=== PATIENT | female | born 1970 | race Hispanic/Latino ===

== ENCOUNTER 2018-12-05 13:03 | Observation (INO) | payer SELFPAY ==
[~2018-12-05] VITALS: Ht 157.5 cm; Wt 82.6 kg
--- OUTSIDE RECORDS SUMMARY | 2018-12-05 13:06 | XMS REPORT | Summary of Care ---
Author Author [facility] Organization [facility] Address Unknown Phone Unavailable Encounter LUCIA Branch(TWAN) [phone] Date(s): 03/13/17 - 03/14/17 [facility] [id number] [place] [address]- Discharge Diagnosis: Cervical sprain Discharge Diagnosis: Abdominal pain due to injury Discharge Diagnosis: Acute head injury Discharge Diagnosis: Anterior chest wall pain Discharge Disposition: Home or Self Care Attending Physician: Eboni Aj DO Vital Signs 1 2 3 Most recent to oldest [Reference Range]: 157.48 cm (03/13/17 9:15 PM) Height 98.1 DegF (03/14/17 2:11 AM) 98.1 DegF (03/13/17 10:20 PM) 98.3 DegF (03/13/17 9:15 PM) Temperature Oral [96.4-99.1 DegF] 120/87 mmHg (03/14/17 2:11 AM) 146/90 mmHg *HI* (03/13/17 11:55 PM) 140/91 mmHg (03/13/17 10:20 PM) Blood Pressure [90-140/60-90 mmHg] 14 BRMIN (03/14/17 2:11 AM) 19 BRMIN (03/13/17 11:55 PM) 18 BRMIN (03/13/17 10:20 PM) Respiratory Rate [14-20 BRMIN] 52 bpm *LOW* (03/14/17 2:11 AM) 59 bpm *LOW* (03/13/17 11:55 PM) 60 bpm (03/13/17 10:20 PM) Peripheral Pulse Rate [60-100 bpm] 81.818 kg (03/13/17 9:15 PM) Weight 32.99 m2 (03/13/17 9:15 PM) Body Mass Index Problem List Condition Effective Dates Status Health Status Informant HTN Active (hypertension)(Confi rmed) Allergies, Adverse Reactions, Alerts Substance Reaction Severity Status NKDA Active Medications Flexeril 10 mg oral tablet 10 mg, PO, TID, PRN Muscle Spasm, X 10 day, # 20 tab, 0 Refill(s) Start Date: 03/14/17 Stop Date: 03/24/17 Status: Ordered morphine Sulfate 4 mg, 1 mL, Route: IVP, Drug form: SOLN, ONCE, Dosing Weight 81.818, kg, Priorit y: STAT, Start date: 03/13/17 21:42:00 CHICKEN STUFFER, Stop date: 03/13/17 21:42:00 CHICKEN STUFFER Notes: (Same as:MORPhine Sulfate) Start Date: 03/13/17 Stop Date: 03/13/17 Status: Completed Motrin 600 mg oral tablet 600 mg=1 tab, PO, Q6H, PRN Pain, take with food, # 20 tab, 0 Refill(s) Start Date: 03/14/17 Stop Date: 03/14/17 Status: Completed Zofran 4 mg, 2 mL, Route: IVP, Drug form: INJ, ONCE, Dosing Weight 81.818, kg, Priority : STAT, Start date: 03/13/17 21:42:00 CHICKEN STUFFER, Stop date: 03/13/17 21:42:00 CHICKEN STUFFER Notes: (Same as: Zofran) MEDICATION WASTE Product Size: 4 mgProduct Was timothy: ___ mg Start Date: 03/13/17 Stop Date: 03/13/17 Status: Completed Results ELECTROLYTES Most recent to 1 oldest [Reference Range]: Sodium Lvl [135-145 140 mEq/L mEq/L] (03/13/17 10:00 PM) Potassium Lvl 4.5 mEq/L [3.5-5.1 mEq/L] (03/13/17 10:00 PM) Chloride Lvl [95-109 107 mEq/L mEq/L] (03/13/17 10:00 PM) CO2 [24-32 mEq/L] 25 mEq/L (03/13/17 10:00 PM) AGAP [10.0-20.0 12.5 mEq/L mEq/L] (03/13/17 10:00 PM) CHEM PANEL Most recent to 1 oldest [Reference Range]: Creatinine Lvl 1.00 mg/dL [0.50-1.40 mg/dL] (03/13/17 10:00 PM) eGFR 66 mL/min/1.73m2 1 *NA* (03/13/17 10:00 PM) BUN [7-22 mg/dL] 20 mg/dL (03/13/17 10:00 PM) B/C Ratio [6-25] 20 (03/13/17 10:00 PM) Glucose Lvl [70-99 118 mg/dL mg/dL] *HI* (03/13/17 10:00 PM) Total Protein 8.0 g/dL [6.4-8.4 g/dL] (03/13/17 10:00 PM) Albumin Lvl [3.5-5.0 3.6 g/dL g/dL] (03/13/17 10:00 PM) Globulin [2.7-4.2 4.4 g/dL g/dL] *HI* (03/13/17 10:00 PM) A/G Ratio [0.7-1.6] 0.8 (03/13/17 10:00 PM) Calcium Lvl 8.7 mg/dL [8.5-10.5 mg/dL] (03/13/17 10:00 PM) ALT [0-65 unit/L] 29 unit/L (03/13/17 10:00 PM) AST [0-37 unit/L] 31 unit/L (03/13/17 10:00 PM) Alk Phos [39-136 128 unit/L unit/L] (03/13/17 10:00 PM) Bili Total [0.2-1.3 0.6 mg/dL mg/dL] (03/13/17 10:00 PM) 1Result Comment: The eGFR is calculated using the CKD-EPI formula. In most young, healthy individuals the eGFR will be >90 mL/min/1.73m2. The eGFR declines with age. An eGFR of 60-89 may be normal in some populations, particularly the elderly, for whom the CKD-EPI formula has not been extensively validated. Use of the eGFR is not recommended in the following populations: Individuals with unstable creatinine concentrations, including patients and those with serious co-morbid conditions. Patients with extremes in muscle mass or diet. The data above are obtained from the National Kidney Disease Education Program ( NKDEP) which additionally recommends that when the eGFR is used in patients with extremes of body mass index for purposes of drug dosing, the eGFR should be mul tiplied by the estimated BMI. ENDOCRINOLOGY Most recent to 1 oldest [Reference Range]: S Preg [Negative] Negative *NA* (03/13/17 10:00 PM) HEMATOLOGY Most recent to 1 oldest [Reference Range]: WBC [3.7-10.4 K/CMM] 8.3 K/CMM (03/13/17 10:00 PM) RBC [4.20-5.40 4.62 M/CMM M/CMM] (03/13/17 10:00 PM) Hgb [12.0-16.0 g/dL] 13.8 g/dL (03/13/17 10:00 PM) Hct [36.0-48.0 %] 40.8 % (03/13/17 10:00 PM) MCV [80.0-98.0 fL] 88.4 fL (03/13/17 10:00 PM) MCH [27.0-31.0 pg] 30.0 pg (03/13/17 10:00 PM) MCHC [32.0-36.0 33.9 g/dL g/dL] (03/13/17 10:00 PM) RDW [11.5-14.5 %] 13.8 % (03/13/17 10:00 PM) Platelet [133-450 184 K/CMM K/CMM] (03/13/17 10:00 PM) MPV [7.4-10.4 fL] 9.6 fL (03/13/17 10:00 PM) Segs [45.0-75.0 %] 50.4 % (03/13/17 10:00 PM) Lymphocytes 39.8 % [20.0-40.0 %] (03/13/17 10:00 PM) Monocytes [2.0-12.0 7.9 % %] (03/13/17 10:00 PM) Eosinophils [0.0-4.0 1.1 % %] (12/11/17 10:00 PM) Basophils [0.0-1.0 0.8 % %] (03/13/17 10:00 PM) Segs-Bands # 4.2 K/CMM [1.5-8.1 K/CMM] (03/13/17 10:00 PM) Lymphocytes # 3.3 K/CMM [1.0-5.5 K/CMM] (03/13/17 10:00 PM) Monocytes # [0.0-0.8 0.7 K/CMM K/CMM] (03/13/17 10:00 PM) Eosinophils # 0.1 K/CMM [0.0-0.5 K/CMM] (03/13/17 10:00 PM) Basophils # [0.0-0.2 0.1 K/CMM K/CMM] (03/13/17 10:00 PM) PT [12.0-14.7 13.7 seconds seconds] (03/13/17 10:00 PM) INR [0.85-1.17] 1.05 (03/13/17 10:00 PM) PTT [22.9-35.8 31.7 seconds seconds] (03/13/17 10:00 PM) Immunizations No data available for this section Procedures Procedure Date Related Diagnosis Body Site Appendectomy section Social History Social History Type Response Smoking Status Never smoker; Exposure to Tobacco Smoke None; Cigarette Smoking Last 365 Days No; Reg Smoking Cessation Counseling No Assessment and Plan No data available for this section
--- OUTSIDE RECORDS SUMMARY | 2018-12-05 13:06 | XMS REPORT | CCD ---
Author Author Auto Generated Organization [facility] Address Unknown Phone Unavailable Care Team Providers Care Licensed Prosthetist/Orthotist Name Role Phone Jose Massey CP Allergies, Adverse Reactions, Alerts Substance Reaction Status NKDA Active Medications Medication Instructions Start Date End Date Status Fioricet oral tablet 1 tab, PO, Q4H, PRN, 20 tab, 06/13/2011 Ordered Headache, Substitution Allowed, Maintenance Sodium Chloride 0.9% 1,000 mL, Rate: 1,000 ml/hr, Infuse 06/13/2011 06/13/2011 Completed (Bolus) IV 1,000 mL over: 1 hr, Route: IV, Dosing Weight 76.051 kg, Total Volume: 1,000, Bolus Dose, Priority: STAT, Start date: 06/13/11 12:44:00, Duration: 1 doses or times, Stop date: 06/13/11 13:43:00 promethazine 12.5 mg, 50 mL, Route: IVPB, Drug 06/13/2011 06/13/2011 Completed form: SOLN, ONCE, Priority: STAT, Start date: 06/13/11 12:44:00, Stop date: 06/13/11 12:44:00 aspirin 81 mg 324 mg, 4 tab, Route: PO, Drug 06/13/2011 06/13/2011 Completed tablet, chewable form: CHEWTAB, ONCE, Priority: STAT, Start date: 06/13/11 12:45:00, Stop date: 06/13/11 12:45:00 Saline Flush 0.9% 5 ml, Route: IVP, Drug Form: INJ, 06/13/2011 06/13/2011 Discontinued PRN, PRN Line Flush, Start date: 06/13/11 12:45:00, Duration: 1 doses or times, Stop date: Limited # of times Toradol 30 mg/mL 30 mg, 1 mL, Route: IV, Drug form: 06/13/2011 06/13/2011 Completed injectable solution INJ, ONCE, Start date: 06/13/11 15:58:00, Stop date: 06/13/11 15:58:00 Tylenol 650 mg, Route: PO, ONCE, Priority: 06/13/2011 06/13/2011 Completed STAT, Start date: 06/13/11 13:56:00, Stop date: 06/13/11 13:56:00 Tylenol 650 mg, 20.3 mL, Route: PO, Drug 06/13/2011 06/13/2011 Completed form: LIQ, ONCE, Priority: STAT, Start date: 06/13/11 12:45:00, Stop date: 06/13/11 12:45:00 Vital Signs Most recent to oldest [Reference Range]: 1 Height 157.48 cm (06/13/2011 11:55:00) Weight 76.051 kg (06/13/2011 11:55:00) Results CHEMISTRY Most recent to oldest [Reference Range]: 1 2 Sodium Lvl [135-145 mEq/L] 140 mEq/L (06/13/2011 13:00:00) Potassium Lvl [3.5-5.1 mEq/L] 4.4 mEq/L (06/13/2011 13:00:00) Chloride Lvl [95-109 mEq/L] 108 mEq/L (06/13/2011 13:00:00) CO2 [24-32 mEq/L] 25 mEq/L (06/13/2011 13:00:00) AGAP [10.0-20.0 mEq/L] 11.4 mEq/L (06/13/2011 13:00:00) Creatinine Lvl [0.5-1.4 mg/dL] 0.6 mg/dL (06/13/2011 13:00:00) BUN [7-22 mg/dL] 15 mg/dL (06/13/2011 13:00:00) B/C Ratio [6-25] 25 (06/13/2011 13:00:00) Glucose Lvl 93 mg/dL 1 *NA* (06/13/2011 13:00:00) Total Protein [6.4-8.4 g/dL] 7.8 g/dL (06/13/2011:00:00) Albumin Lvl [3.5-5.0 g/dL] 4.0 g/dL (06/13/2011:00:00) Globulin [2.0-4.0 g/dL] 3.8 g/dL (06/13/2011:00:00) A/G Ratio [0.7-1.6] 1.1 (06/13/2011:00:00) Calcium Lvl [8.5-10.5 mg/dL] 8.5 mg/dL (06/13/2011:00:00) ALT [0-65 U/L] 19 U/L (06/13/2011:00:00) AST [0-37 U/L] 18 U/L (06/13/2011:00:00) Alk Phos [39-136 U/L] 108 U/L (06/13/2011:00:00) Bili Total [0.2-1.3 mg/dL] 0.3 mg/dL (06/13/2011:00:00) Total CK [12-191 U/L] 43 U/L (06/13/2011:30:00) 59 U/L (06/13/2011:00:00) CK MB [0.5-3.6 ng/mL] <0.5 ng/mL (06/13/2011:30:00) <0.5 ng/mL (06/13/2011:00:00) CK MB Index [0.0-2.5] <1.2 (06/13/2011:30:00) <0.8 (06/13/2011:00:00) Troponin-I [0.00-0.40 ng/mL] <0.02 ng/mL (06/13/2011:30:00) <0.02 ng/mL (06/13/2011:00:00) 1Interpretive Data: Reference Ranges : 0 - 7 days : 41 - 90 mg/dL7 days - 150 yrs : 70 - 99 mg/dL (fasting), based on the clinical recommendations of the [place] [employer]. HEMATOLOGY Most recent to oldest [Reference Range]: 1 2 WBC [3.7-10.4 K/CMM] 8.0 K/CMM (06/13/2011:00:00) RBC [4.20-5.40 M/CMM] 4.42 M/CMM (06/13/2011:00:00) Hgb [12.0-16.0 g/dL] 9.9 g/dL *LOW* (06/13/2011:00:00) Hct [36.0-48.0 %] 31.7 % *LOW* (06/13/2011:00:00) MCV [81.0-99.0 fL] 71.8 fL *LOW* (06/13/2011:00:00) MCH [27.0-31.0 pg] 22.4 pg *LOW* (06/13/2011:00:00) MCHC [32.0-36.0 g/dL] 31.2 g/dL *LOW* (06/13/2011:00:00) RDW [11.5-14.5 %] 17.6 % *HI* (06/13/2011:00:00) Platelet [133-450 K/CMM] 310 K/CMM (06/13/2011:00:00) MPV [7.4-10.4 fL] 9.1 fL (06/13/2011:00:00) Segs [45.0-75.0 %] 62.1 % (06/13/2011:00:00) Lymphocytes [20.0-40.0 %] 30.4 % (06/13/2011:00:00) Monocytes [2.0-12.0 %] 6.2 % (06/13/2011:00:00) Eosinophils [0.0-4.0 %] 0.8 % (06/13/2011:00:00) Basophils [0.0-1.0 %] 0.5 % (06/13/2011:00:00) Segs-Bands # [1.5-8.1 K/CMM] 5.0 K/CMM (06/13/2011:00:00) Lymphocytes # [1.0-5.5 K/CMM] 2.4 K/CMM (06/13/2011 13:00:00) Monocytes # [0.0-0.8 K/CMM] 0.5 K/CMM (06/13/2011 13:00:00) Eosinophils # [0.0-0.5 K/CMM] 0.1 K/CMM (06/13/2011 13:00:00) Basophils # [0.0-0.2 K/CMM] 0.0 K/CMM (06/13/2011 13:00:00) Microcyte [None Seen] 1+ *ABN* (06/13/2011 13:00:00) PT [12.0-14.7 seconds] 13.4 seconds (06/13/2011 13:00:00) INR [0.85-1.17] 1.02 2 (06/13/2011 13:00:00) PTT [22.9-35.8 seconds] 32.4 seconds 3 (06/13/2011 13:00:00) 2Interpretive Data: RECOMMENDED RANGES FOR PROTIME INR: 2.0-3.0 for most medical and surgical thromboembolic states. 2.5-3.5 for artificial heart valves and recurrent embolism.INR SHOULD BE USED ONLY FOR PATIENTS ON STABLE ANTICOAGULANT THERAPY. 3Interpretive Data: Heparin Therapeutic Range: 57 - 92 Seconds
--- OUTSIDE RECORDS SUMMARY | 2018-12-05 13:06 | XMS REPORT | CCD ---
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 Name Role Phone Jose Massey CP Allergies, Adverse Reactions, Alerts Substance Reaction Status NKDA Active Medications Medication Instructions Start Date End Date Status morphine Sulfate 4 mg, 1 mL, Route: IVP, Drug form: 07/16/2011 07/16/2011 Completed INJ, ONCE, Priority: STAT, Start date: 07/16/11 1:09:00, Stop date: 07/16/11 1:09:00 Omnipaque 240 50 mL, Route: PO, Drug Form: SOLN, 07/16/2011 07/16/2011 Completed ONCE, STAT, Start date: 07/16/11 1:09:00, Stop date: 07/16/11 1:09:00 ondansetron 4 mg, 2 mL, Route: IVP, Drug form: 07/16/2011 07/16/2011 Completed INJ, ONCE, Priority: STAT, Start date: 07/16/11 1:09:00, Stop date: 07/16/11 1:09:00 Sodium Chloride 0.9% 1,000 mL, Rate: 1,000 ml/hr, Infuse 07/16/2011 07/16/2011 Completed (Bolus) IV 1,000 mL over: 1 hr, Route: IV, Dosing Weight 2.358 kg, Total Volume: 1,000, Bolus Dose, Priority: STAT, Start date: 07/16/11 1:08:00, Duration: 1 doses or times, Stop date: 07/16/11 2:07:00 enalapril Substitution Allowed 07/15/2011 Ordered hydromorphone 1 mg, 1 mL, Route: IVP, Drug form: 07/16/2011 07/16/2011 Completed INJ, ONCE, Priority: STAT, Start date: 07/16/11 3:44:00, Stop date: 07/16/11 3:44:00 Edwards 5/325 oral 1 tab, PO, Q4-6H, PRN, 20 tab, as 07/16/2011 Ordered tablet needed for pain, Substitution Allowed, Maintenance Vital Signs Most recent to oldest [Reference Range]: 1 Height 165.10 cm (07/15/2011 23:33:00) Weight 2.358 kg (07/15/2011 23:33:00) Results URINALYSIS Most recent to oldest [Reference Range]: 1 UA Turbidity [Clear] Clear (07/16/2011 01:30:00) UA Color STRAW *NA* (07/16/2011 01:30:00) UA pH [5.0-8.0] 5.5 (07/16/2011 01:30:00) UA Spec Grav [<=1.030] 1.005 (07/16/2011 01:30:00) UA Glucose [Negative] Negative (07/16/2011 01:30:00) UA Blood [Negative] Negative (07/16/2011 01:30:00) UA Ketones [Negative] Negative *NA* (07/16/2011 01:30:00) UA Protein [Negative] Negative (07/16/2011 01:30:00) UA Urobilinogen [0.1-1.0 EU/dL] 0.2 EU/dL (07/16/2011 01:30:00) UA Bili [Negative] Negative *NA* (07/16/2011 01:30:00) UA Leuk Est [Negative] Negative (07/16/2011 01:30:00) UA Nitrite [Negative] Negative (07/16/2011 01:30:00) UA WBC [None Seen /HPF] 0-2 /HPF (07/16/2011 01:30:00) UA RBC [0-2] None Seen (07/16/2011 01:30:00) UA Bacteria [None Seen /HPF] Occasional /HPF (07/16/2011 01:30:00) UA Sq Epi [Few /LPF] Few /LPF (07/16/2011 01:30:00) Micro? Performed (07/16/2011 01:30:00) CHEMISTRY Most recent to oldest [Reference Range]: 1 Sodium Lvl [135-145 mEq/L] 138 mEq/L (07/16/2011:30:00) Potassium Lvl [3.5-5.1 mEq/L] 3.9 mEq/L (07/16/2011:30:00) Chloride Lvl [95-109 mEq/L] 106 mEq/L (07/16/2011:30:00) CO2 [24-32 mEq/L] 23 mEq/L *LOW* (07/16/2011:30:00) AGAP [10.0-20.0 mEq/L] 12.9 mEq/L (07/16/2011:30:00) Creatinine Lvl [0.5-1.4 mg/dL] 0.7 mg/dL (07/16/2011:30:00) BUN [7-22 mg/dL] 13 mg/dL (07/16/2011:30:00) B/C Ratio [6-25] 19 (07/16/2011:30:00) Glucose Lvl [70-99 mg/dL] 101 mg/dL 1 *HI* (07/16/2011:30:00) Total Protein [6.4-8.4 g/dL] 8.6 g/dL *HI* (07/16/2011:30:00) Albumin Lvl [3.5-5.0 g/dL] 3.9 g/dL (07/16/2011:30:00) Globulin [2.0-4.0 g/dL] 4.7 g/dL *HI* (07/16/2011:30:00) A/G Ratio [0.7-1.6] 0.8 (07/16/2011:30:00) Calcium Lvl [8.5-10.5 mg/dL] 8.6 mg/dL (07/16/2011:30:00) ALT [0-65 U/L] 22 U/L (07/16/2011:30:00) AST [0-37 U/L] 17 U/L (07/16/2011:30:00) Alk Phos [39-136 U/L] 123 U/L (07/16/2011:30:00) Bili Total [0.2-1.3 mg/dL] 0.3 mg/dL (07/16/2011 01:30:00) Lipase Lvl [73-393 U/L] 119 U/L (07/16/2011:30:00) S Preg [Negative] Negative *NA* (07/16/2011:30:00) 1Interpretive Data: Adult reference range values reflect the clinical guidelinesof the [place] [employer]. HEMATOLOGY Most recent to oldest [Reference Range]: 1 WBC [3.7-10.4 K/CMM] 10.2 K/CMM (07/16/2011 01:30:00) RBC [4.20-5.40 M/CMM] 4.39 M/CMM (07/16/2011 01:30:00) Hgb [12.0-16.0 g/dL] 9.6 g/dL *LOW* (07/16/2011 01:30:00) Hct [36.0-48.0 %] 31.1 % *LOW* (07/16/2011:30:00) MCV [81.0-99.0 fL] 70.8 fL *LOW* (07/16/2011 01:30:00) MCH [27.0-31.0 pg] 21.9 pg *LOW* (07/16/2011:30:00) MCHC [32.0-36.0 g/dL] 30.9 g/dL *LOW* (07/16/2011 01:30:00) RDW [11.5-14.5 %] 17.8 % *HI* (07/16/2011:30:00) Platelet [133-450 K/CMM] 271 K/CMM (07/16/2011 01:30:00) MPV [7.4-10.4 fL] 9.0 fL (07/16/2011 01:30:00) Segs [45.0-75.0 %] 60.7 % (07/16/2011 01:30:00) Lymphocytes [20.0-40.0 %] 31.4 % (07/16/2011 01:30:00) Monocytes [2.0-12.0 %] 7.1 % (07/16/2011 01:30:00) Eosinophils [0.0-4.0 %] 0.4 % (07/16/2011 01:30:00) Basophils [0.0-1.0 %] 0.4 % (07/16/2011 01:30:00) Segs-Bands # [1.5-8.1 K/CMM] 6.2 K/CMM (07/16/2011 01:30:00) Lymphocytes # [1.0-5.5 K/CMM] 3.2 K/CMM (07/16/2011 01:30:00) Monocytes # [0.0-0.8 K/CMM] 0.7 K/CMM (07/16/2011 01:30:00) Eosinophils # [0.0-0.5 K/CMM] 0.0 K/CMM (07/16/2011 01:30:00) Basophils # [0.0-0.2 K/CMM] 0.0 K/CMM (07/16/2011 01:30:00) Microcyte [None Seen] 1+ *ABN* (07/16/2011 01:30:00)
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
--- OUTSIDE RECORDS SUMMARY | 2018-12-05 13:07 | XMS REPORT ---
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 or Problems Problem Name Problem Code Onset Date Status Entry Date Provider Comment Standard Description Annotate Alkaline phosphatase, elevated 790.5 Active Franco Morrell MD Other nonspecific abnormal serum enzyme levels Blurred vision 368.8 Active Franco Morrell MD Other specified visual disturbances Financial problems V60.2 Active Franco Morrell MD Inadequate material resources Foot pain 729.5 Active Franco Morrell MD Pain in limb Screening for breast cancer V76.10 Active Franco Morrell MD Breast screening, unspecified Well woman exam V72.3 Active Franco Morrell MD Special investigations and examinations - Gynecological examination Hearing deficit 389.9 Active Franco Morrell MD Unspecified hearing loss Obesity Active Diandra Laird MD Obesity, unspecified Vitamin D deficiency 268.9 Active Diandra Laird MD Unspecified vitamin D deficiency Headache, tension 307.81 Active Diandra Laird MD Tension headache Hyperlipidemia 272.4 Active Diandra Laird MD Other and unspecified hyperlipidemia Prediabetes 790.29 Active Diandra Laird MD Other abnormal glucose Anxiety, situational 308.3 Active Diandra Laird MD Other acute reactions to stress BMI 32-32.9 adult V85.32 Active Franco Morrell MD Body Mass Index 32.0-32.9, adult Hypertension benign essential 401.1 Active Diandra Laird MD Benign essential hypertension Viral URI 465.9 Active Franco Morrell MD Acute upper respiratory infections of unspecified site Screening for anemia V78.1 Inactive Franco Morrell MD Screening for other and unspecified deficiency anemia Screening for anemia ICD-V78.1 Inactive Franco Morrell MD Screening for metabolic disease V77.99 Inactive Franco Morrell MD Screening for other and unspecified endocrine, nutritional, metabolic, and immunity disorders Screening for metabolic disease ICD-V77.99 Inactive Franco Morrell MD Screening for std V74.5 Inactive Franco Morrell MD Screening examination for venereal disease Screening for std ICD-V74.5 Inactive Franco Morrell MD Screening for thyroid disorder V77.0 Inactive Franco Morrell MD Screening for thyroid disorders Screening for thyroid disorder ICD-V77.0 Inactive Franco Morrell MD Dysuria ICD-788.1 Inactive Franco Morrell MD Lower back pain ICD-724.2 Inactive Franco Morrell MD Pyelonephritis ICD-590.80 Inactive Franco Morrell MD Chest tightness ICD-786.59 Inactive Franco Morrell MD Colon cancer screening V76.51 Inactive Franco Morrell MD Screening for malignant neoplasms of colon Colon cancer screening ICD-V76.51 Inactive Franco Morrell MD Bone pain ICD-733.90 Inactive Franco Morrell MD Annual gynecological examination V72.3 Inactive Franco Morrell MD Special investigations and examinations - Gynecological examination Annual gynecological examination ICD-V72.3 Inactive Franco Morrell MD IUD check ICD-V25.42 Inactive Franco Morrell MD Mammogram, Screening V76.12 Inactive Diandra Laird MD Other screening mammogram Mammogram, Screening ICD-V76.12 Inactive Diandra Laird MD Nasal Congestion 478.19 Inactive rFanco Morrell MD Other disease of nasal cavity and sinuses Nasal Congestion ICD-478.19 Inactive Franco Morrell MD Screening, diabetes mellitus V77.1 Inactive Diandra Laird MD Screening for diabetes mellitus Screening, diabetes mellitus ICD-V77.1 Inactive Diandra Laird MD BMI 33.0-33.9 Inactive Diandra Laird MD Body Mass Index 33.0-33.9, adult Dysuria 788.1 Resolved Franco Morrell MD Dysuria Lower back pain 724.2 Resolved Franco Morrell MD Lumbago Pyelonephritis 590.80 Resolved Franco Morrell MD Pyelonephritis, unspecified Chest tightness 786.59 Resolved Franco Morrell MD Other chest pain Bone pain 733.90 Resolved Franco Morrell MD Disorder of bone and cartilage, unspecified IUD check V25.42 Resolved Franco Morrell MD Encounter for surveillance of intrauterine contraceptive device Viral URI 465.9 Resolved Franco Morrell MD Acute upper respiratory infections of unspecified site Medication List Medication Instructions Start Date Stop Date Generic Name NDC Status Provider Patient Instruction ARTIFICIAL TEARS 0.2-0.2-1 % OPHTHALMIC SOLUTION 1 to 2 drops as needed [id number] 400 [id number] Active Franco Morrell MD Active TYLENOL EXTRA STRENGTH 500 MG ORAL TABLET 2 by mouth every 8 hours as needed ACETAMINOPHEN 93893438471 Active Franco Morrell MD Active ERGOCALCIFEROL 74733 UNIT ORAL CAPSULE Take 1 capsule weekly ERGOCALCIFEROL 39567589149 Active Franco Morrell MD Active ENALAPRIL MALEATE 20 MG ORAL TABLET 1 by mouth twice a day. ENALAPRIL MALEATE [id number] Active Franco Morrell MD Active CIPRO 500 MG ORAL TABLET 1 by mouth twice a day CIPRO 500 MG ORAL TABLET 091402 CIPROFLOXACIN HCL Inactive ERGOCALCIFEROL 69263 UNIT ORAL CAPSULE Take 1 capsule weekly ERGOCALCIFEROL 45194 UNIT ORAL CAPSULE 4823869 ERGOCALCIFEROL Inactive ERGOCALCIFEROL 20111 UNIT ORAL CAPSULE TAKE 1 CAPSULE WEEKLY ERGOCALCIFEROL 66895 UNIT ORAL CAPSULE 6044545 ERGOCALCIFEROL Inactive CYCLOBENZAPRINE HCL 10 MG ORAL TABLET 1 By Mouth three times a day as needed for pain CYCLOBENZAPRINE HCL 10 MG ORAL TABLET 623093 CYCLOBENZAPRINE HCL Inactive IBUPROFEN 600 MG ORAL TABLET 1 By Mouth Every 8 hours As Needed pain IBUPROFEN 600 MG ORAL TABLET 873514 IBUPROFEN Inactive CHERATUSSIN AC 100-10 MG/5ML ORAL SYRUP 2 teaspoons (10mL) by mouth every 4 hours as needed for cough CHERATUSSIN AC 100-10 MG/5ML ORAL SYRUP 813677 GUAIFENESIN-CODEINE Inactive FLONASE ALLERGY RELIEF 50 MCG/ACT NASAL SUSPENSION 2 sprays each nostril every day FLONASE ALLERGY RELIEF 50 MCG/ACT NASAL SUSPENSION 5898565 FLUTICASONE PROPIONATE Inactive BENICAR HCT 20-12.5 MG ORAL TABLET Take 1 tablet daily BENICAR HCT 20-12.5 MG ORAL TABLET 720571 OLMESARTAN MEDOXOMIL-HCTZ Inactive CLONAZEPAM 0.5 MG ORAL TABLET 1 By Mouth Twice a Day CLONAZEPAM 0.5 MG ORAL TABLET 447163 CLONAZEPAM Inactive IBUPROFEN 600 MG ORAL TABLET 1 By Mouth Every 8 hours As Needed pain IBUPROFEN 600 MG ORAL TABLET 702539 IBUPROFEN Inactive MEDROL 4 MG ORAL TABLET THERAPY PACK use as directed MEDROL 4 MG ORAL TABLET THERAPY PACK 893594 METHYLPREDNISOLONE Inactive CIPRO 500 MG ORAL TABLET 1 by mouth twice a day CIPROFLOXACIN HCL 65371765528 No Longer Active Franco Morrell MD Active ERGOCALCIFEROL 57918 UNIT ORAL CAPSULE Take 1 capsule weekly ERGOCALCIFEROL 38096257304 No Longer Active Diandra Laird MD Active ERGOCALCIFEROL 54851 UNIT ORAL CAPSULE TAKE 1 CAPSULE WEEKLY ERGOCALCIFEROL 60680305867 No Longer Active Diandra Laird MD Active CYCLOBENZAPRINE HCL 10 MG ORAL TABLET 1 By Mouth three times a day as needed for pain CYCLOBENZAPRINE HCL 11172981950 No Longer Active Diandra Laird MD Active IBUPROFEN 600 MG ORAL TABLET 1 By Mouth Every 8 hours As Needed pain IBUPROFEN 43548743765 No Longer Active Diandra Laird MD Active CHERATUSSIN AC 100-10 MG/5ML ORAL SYRUP 2 teaspoons (10mL) by mouth every 4 hours as needed for cough GUAIFENESIN-CODEINE 25175436071 No Longer Active Diandra Laird MD Active FLONASE ALLERGY RELIEF 50 MCG/ACT NASAL SUSPENSION 2 sprays each nostril every day FLUTICASONE PROPIONATE 58805164754 No Longer Active Diandra Laird MD Active BENICAR HCT 20-12.5 MG ORAL TABLET Take 1 tablet daily OLMESARTAN MEDOXOMIL-HCTZ 61502805305 No Longer Active Diandra Laird MD Active CLONAZEPAM 0.5 MG ORAL TABLET 1 By Mouth Twice a Day CLONAZEPAM 11361482680 No Longer Active Diandra Laird MD Active IBUPROFEN 600 MG ORAL TABLET 1 By Mouth Every 8 hours As Needed pain IBUPROFEN 09863808711 No Longer Active Diandra Laird MD Active MEDROL 4 MG ORAL TABLET THERAPY PACK use as directed METHYLPREDNISOLONE 86500485646 No Longer Active Diandra Laird MD Active Vital Signs Date Name Value Unit Range Description blood pressure, diastolic, second observation 88 mm[Hg] BP bourne blood pressure, diastolic 88 mm[Hg] BP bourne blood pressure, systolic, second observation 136 mm[Hg] BP sys blood pressure, systolic 136 mm[Hg] BP sys height E&M 62 [in_us] Bdy height pulse rate E&M 63 /min Heart rate respiratory rate #2 73 Resp rate temperature E&M 97.4 [degF] Body temperature weight E&M 178.50 [lb_av] Weight Measured blood pressure, diastolic, second observation 88 mm[Hg] BP bourne blood pressure, diastolic 95 mm[Hg] BP bourne blood pressure, systolic, second observation 154 mm[Hg] BP sys blood pressure, systolic 143 mm[Hg] BP sys height E&M 62 [in_us] Bdy height pulse rate E&M 60 /min Heart rate pulse rate #2 54 Heart rate respiratory rate E&M 17 /min Resp rate temperature E&M 98.4 [degF] Body temperature weight E&M 179.25 [lb_av] Weight Measured blood pressure, diastolic 73 mm[Hg] BP bourne blood pressure, systolic 129 mm[Hg] BP sys height E&M 62 [in_us] Bdy height pulse rate E&M 60 /min Heart rate temperature E&M 98.1 [degF] Body temperature weight E&M 178.80 [lb_av] Weight Measured blood pressure, diastolic 82 mm[Hg] BP bourne blood pressure, systolic 141 mm[Hg] BP sys height E&M 62 [in_us] Bdy height pulse rate E&M 61 /min Heart rate temperature E&M 98.4 [degF] Body temperature weight E&M 182.38 [lb_av] Weight Measured blood pressure, diastolic, second observation 93 mm[Hg] BP bourne blood pressure, diastolic 92 mm[Hg] BP bourne blood pressure, systolic, second observation 144 mm[Hg] BP sys blood pressure, systolic 152 mm[Hg] BP sys height E&M 62 [in_us] Bdy height pulse rate E&M 59 /min Heart rate pulse rate #2 51 Heart rate temperature E&M 97.9 [degF] Body temperature weight E&M 183 [lb_av] Weight Measured Diagnostic Results Date Name Value Unit Range Description Lab Report: CBC With Differential/Platelet, Comp. Metabolic Panel (14), ... - Urinalysis mucus on urinalysis Present Not Estab. Lab Report: CBC With Differential/Platelet, Comp. Metabolic Panel (14), ... - Chemistry thyroid stimulating hormone, serum 2.970 u[iU]/mL 0.450-4.500 Lab Report: CBC With Differential/Platelet, Comp. Metabolic Panel (14), ... - Urinalysis WBC urine on microscopy 6-10 /hpf {Cells}/[HPF] 0 - 5 Office Visit: URI, anxiety, HTN - Chemistry beta HCG, urine, semiquantitative negative Lab Report: CBC With Differential/Platelet, Comp. Metabolic Panel (14), ... - Chemistry very low density lipoproteins 16 mg/dL 5-40 hepatitis B surface antigen Negative Negative Lab Report: CBC With Differential/Platelet, Comp. Metabolic Panel (14), ... - Urinalysis epithelial cells, urine >10 /[LPF] 0 - 10 Lab Report: CBC With Differential/Platelet, Comp. Metabolic Panel (14), ... - Chemistry chloride, serum 105 mmol/L 96-106 urea nitrogen, blood 19 mg/dL 6-24 Lab Report: CBC With Differential/Platelet, Comp. Metabolic Panel (14), ... - Urinalysis leukocyte esterase, urine, by dipstick 2+ Negative Lab Report: CBC With Differential/Platelet, Comp. Metabolic Panel (14), ... - Hematology mean corpuscular hemoglobin concentration, RBC 32.9 G/DL % 31.5-35.7 erythrocyte (RBC) count 4.84 X10E6/UL 10*6/mm3 3.77-5.28 Office Visit: Acute Visit 48y F pyelo, HTN - Urinalysis nitrite, urine, semiquantitative negative Lab Report: CBC With Differential/Platelet, Comp. Metabolic Panel (14), ... - Serology hepatitis C antibody, serum 0.1 0.0-0.9 Lab Report: CBC With Differential/Platelet, Comp. Metabolic Panel (14), ... - Urinalysis urine color Yellow Yellow Lab Report: CBC With Differential/Platelet, Comp. Metabolic Panel (14), ... - Chemistry Absolute Neutrophils 2.8 X10E3/UL 10*3/uL 1.4-7.0 Lab Report: CBC With Differential/Platelet, Comp. Metabolic Panel (14), ... - Urinalysis bilirubin, urine Negative Negative Lab Report: CBC With Differential/Platelet, Comp. Metabolic Panel (14), ... - Chemistry LDL cholesterol, serum 143 mg/dL 0-99 urea nitrogen/creatinine ratio, serum 25 9-23 Lab Report: CBC With Differential/Platelet, Comp. Metabolic Panel (14), ... - Hematology mean corpuscular volume, RBC 88 fL 79-97 Lab Report: CBC With Differential/Platelet, Comp. Metabolic Panel (14), ... - Chemistry HDL cholesterol, serum 62 mg/dL >39 Lab Report: CBC With Differential/Platelet, Comp. Metabolic Panel (14), ... - Hematology monocytes as percent of blood leukocytes 4 % Not Estab. Lab Report: CBC With Differential/Platelet, Comp. Metabolic Panel (14), ... - Chemistry albumin/globulin ratio, serum 1.5 1.2-2.2 creatinine, serum 0.76 mg/dL 0.57-1.00 cholesterol, serum 221 mg/dL 110-047 9292/05/28 bilirubin, serum, total 0.4 mg/dL 0.0-1.2 Lab Report: CBC With Differential/Platelet, Comp. Metabolic Panel (14), ... - Hematology Eosinophil Absolute Count 0.0 X10E3/UL 10*3/uL 0.0-0.4 Lab Report: CBC With Differential/Platelet, Comp. Metabolic Panel (14), ... - Lab chlamydia DNA probe Negative Negative Lab Report: CBC With Differential/Platelet, Comp. Metabolic Panel (14), ... - Urinalysis appearance, urine Cloudy Clear Office Visit: Acute Visit 48y F pyelo, HTN - Urinalysis blood in urine (hemoglobin) by dipstick negative Lab Report: CBC With Differential/Platelet, Comp. Metabolic Panel (14), ... - Chemistry aspartate aminotransferase (SGOT), serum 23 U/L 0-40 Lab Report: CBC With Differential/Platelet, Comp. Metabolic Panel (14), ... - Hematology red blood cell distribution width 14.1 % 12.3-15.4 Lab Report: CBC With Differential/Platelet, Comp. Metabolic Panel (14), ... - Urinalysis urinalysis, microscopic examination See below: Lab Report: CBC With Differential/Platelet, Comp. Metabolic Panel (14), ... - Hematology leukocyte count, blood 5.5 X10E3/UL 10*3/mm3 3.4-10.8 Lab Report: CBC With Differential/Platelet, Comp. Metabolic Panel (14), ... - Urinalysis pH, urine, semiquantitative 6.0 5.0-7.5 Lab Report: CBC With Differential/Platelet, Comp. Metabolic Panel (14), ... - Chemistry potassium, serum 4.6 mmol/L 3.5-5.2 albumin, serum 4.4 g/dL 3.5-5.5 immature granulocytes, percentage of total cells, blood 0 % Not Estab. Lab Report: CBC With Differential/Platelet, Comp. Metabolic Panel (14), ... - Hematology lymphocyte count, blood, automated 2.4 X10E3/UL 10*3/mm3 0.7-3.1 hematocrit, blood 42.8 % 34.0-46.6 Lab Report: CBC With Differential/Platelet, Comp. Metabolic Panel (14), ... - Microbiology Neisseria gonorrhoeae DNA probe Negative Negative Lab Report: CBC With Differential/Platelet, Comp. Metabolic Panel (14), ... - Chemistry sodium, serum 140 mmol/L 134-144 Lab Report: CBC With Differential/Platelet, Comp. Metabolic Panel (14), ... - Hematology neutrophils as percent of blood leukocytes 51 % Not Estab. basophils as percent of blood leukocytes 0 % Not Estab. Lab Report: CBC With Differential/Platelet, Comp. Metabolic Panel (14), ... - Chemistry specific gravity, body fluid 1.019 1.005-1.030 Office Visit: Acute Visit 48y F HTN, preDM, HLD, vURI - Serology influenza virus A antigen negative Lab Report: CBC With Differential/Platelet, Comp. Metabolic Panel (14), ... - Chemistry RBC, Urine 3-10 /hpf /[HPF] 0 - 2 Lab Report: CBC With Differential/Platelet, Comp. Metabolic Panel (14), ... - Urinalysis protein, urine, semiquantitative (dipstick) Negative Negative/Trace Lab Report: CBC With Differential/Platelet, Comp. Metabolic Panel (14), ... - Serology rapid plasma reagin antibody, serum Non Reactive Non Reactive Lab Report: UA/M w/rflx Culture, Routine, Microscopic Examination, UA/M ... - Microbiology microscopic exam See below: Lab Report: CBC With Differential/Platelet, Comp. Metabolic Panel (14), ... - Chemistry carbon dioxide, venous blood 21 mmol/L 20-29 nitrate, urine Negative Negative triglyceride, serum, fasting 82 mg/dL 0-149 calcium, serum 9.1 mg/dL 8.7-10.2 alanine aminotransferase (SGPT), serum 19 U/L 0-32 Lab Report: CBC With Differential/Platelet, Comp. Metabolic Panel (14), ... - Hematology mean corpuscular hemoglobin, RBC 29.1 pg 26.6-33.0 Lab Report: CBC With Differential/Platelet, Comp. Metabolic Panel (14), ... - Urinalysis bacteria, urine microscopy Few None seen/Few Office Visit: Acute Visit 48y F pyelo, HTN - Urinalysis specific gravity, urine 1.025 Lab Report: CBC With Differential/Platelet, Comp. Metabolic Panel (14), ... - Chemistry protein, total, serum 7.4 g/dL 6.0-8.5 alkaline phosphatase, serum 122 U/L 39-117 Office Visit: Acute Visit 48y F HTN, preDM, HLD, vURI - Lab Microbial identification kit, rapid strep method negative Lab Report: CBC With Differential/Platelet, Comp. Metabolic Panel (14), ... - Hematology hemoglobin, blood 14.1 g/dL 11.1-15.9 lymphocytes as percent of blood leukocytes 44 % Not Estab. Lab Report: CBC With Differential/Platelet, Comp. Metabolic Panel (14), ... - Chemistry hemoglobin A1C, blood, as % of total hemoglobin 5.9 % 4.8-5.6 Lab Report: CBC With Differential/Platelet, Comp. Metabolic Panel (14), ... - Urinalysis glucose, urine, semiquantitative Negative Negative Lab Report: CBC With Differential/Platelet, Comp. Metabolic Panel (14), ... - Genetics/fertility eGFR if 106 mL/min/1.73m2 >59 Lab Report: CBC With Differential/Platelet, Comp. Metabolic Panel (14), ... - Hematology basophil count, absolute 0.0 x10E3/uL 0.0-0.2 Lab Report: CBC With Differential/Platelet, Comp. Metabolic Panel (14), ... - Chemistry globulin, serum 3.0 1.5-4.5 Estimated Glomerular Filtration Rate (calc) 92 mL/min/1.73m2 >59 Lab Report: CBC With Differential/Platelet, Comp. Metabolic Panel (14), ... - Basic Occult Blood, urine 1+ Negative Lab Report: CBC With Differential/Platelet, Comp. Metabolic Panel (14), ... - Chemistry vitamin D 25-hydroxy, serum 22.0 ng/mL 30.0-100.0 Lab Report: CBC With Differential/Platelet, Comp. Metabolic Panel (14), ... - Hematology eosinophils as percent of blood leukocytes 1 % Not Estab. Lab Report: CBC With Differential/Platelet, Comp. Metabolic Panel (14), ... - Chemistry blood glucose, random 100 mg/dL 65-99 Lab Report: CBC With Differential/Platelet, Comp. Metabolic Panel (14), ... - Urinalysis urobilinogen, urine, semiquantitative (dipstick) 0.2 0.2-1.0 Lab Report: CBC With Differential/Platelet, Comp. Metabolic Panel (14), ... - Hematology monocyte count, blood, automated 0.2 X10E3/UL 10*3/uL 0.1-0.9 platelet count 209 X10E3/UL 10*3/mm3 150-450 Lab Report: CBC With Differential/Platelet, Comp. Metabolic Panel (14), ... - Urinalysis ketones, urine, by test strip Negative Negative Office Visit: Acute Visit 48y F HTN, preDM, HLD, vURI - Lab influenza B virus antigen negative Encounters Date Encounter Provider Code Facility 11:11:06 CDT Est Patient Detailed - [id number] Franco Morrell MD CPT-43585 [facility] 12:28:17 [employer] Est Patient Detailed - 33009 Franco Morrell MD CPT-92651 [facility] 10:46:26 [employer] CONSULTANT Est Patient Detailed - 46292 Franco Morrell MD CPT-86588 [facility] 13:11:35 [employer] Est Patient Problem Focus - 28343 Franco Morrell MD CPT-45409 [facility] 09:23:59 [employer] CONSULTANT Est Patient Detailed - 72211 Diandra Laird MD CPT-67951 [facility] 17:53:50 CDT Est Patient Exp Problem - 72010 Diandra Laird MD CPT-54045 [facility] 09:40:28 CDT Est Patient Exp Problem - 35804 Diandra Laird MD CPT-98898 [facility] 14:11:54 CDT Est Patient Detailed - 37247 Diandra Laird MD CPT-94107 [facility] 12:17:04 CDT New Patient Detailed - 27458 Diandra Laird MD CPT-91289 [facility] Procedures Code Procedure Name Date Entry Date Standard Description CPT-13128 Est Patient Well Exam (40 - 64 Yrs) - 97366 09:08:27 CDT CPT-68320 Handling of specimen for transfer 09:08:27 CDT CPT-31867 Venipuncture 09:08:25 CDT CPT-09941 Urinalysis - Dip only - In House 12:21:04 [employer] CPT-33785 EKG - 12 Leads Tracing only w/o Interpretation and report 10:43:48 [employer] CPT-58387 Est Patient Well Exam (40 - 64 Yrs) - [id number] 17:13:50 CDT
--- NOTE | 2018-12-05 13:35 | NUR ---
PATIENT BROUGHT TO TREATMENT ROOM FOR EVALUATION BY DR. DEVINE. STATES MONDAY SHE HAD LEFT SIDE "SHOCK" CHEST PAIN THAT LASTED 40 MIN. PAIN WITH DEEP BREATHING. THE PAIN CAME BACK YESTERDAY AND LASTED ALL DAY. TODAY HER BREAST HURT AND SHE IS TIRED
[2018-12-05] MEDS ORDERED: ASPIRIN 81 MG CHEW TAB PO ONE ×2 (13:38→13:45)
[2018-12-05] MEDS ORDERED: SODIUM CHLORIDE 0.9% 1000ML 1,000 ML IV STA (13:38)
[2018-12-05] MEDS ORDERED: MORPHINE SULFATE 2 MG/ML SYR 1ML IV ONE (13:38)
[2018-12-05] MEDS ORDERED: FAMOTIDINE 20 MG/2 ML VIAL IV ONE (13:38)
[2018-12-05] MEDS ORDERED: ONDANSETRON HCL INJ 2MG/ML 2ML 2 MG/ML VIAL IV ONE (13:38)
[2018-12-05] MEDS ORDERED: ENOXAPARIN SODIUM INJ 100 MG/ML SYR SC STA (13:38)
[2018-12-05] MEDS ORDERED: SODIUM CHLORIDE FLUSH 10 ML SYR INJ PRN (13:45)
[2018-12-05] MEDS ORDERED: MORPHINE SULFATE 2 MG/ML SYR 1ML IV PRN (13:45)
[2018-12-05] MEDS ORDERED: ONDANSETRON HCL INJ 2MG/ML 2ML 2 MG/ML VIAL IV PRN (13:45)
[2018-12-05] MEDS ORDERED: FAMOTIDINE 20 MG/2 ML VIAL IV SCH (14:00)
[2018-12-05] MEDS ORDERED: ENOXAPARIN INJ 80 MG/0.8 ML SYR SC SCH (14:00)
[2018-12-05] MEDS ORDERED: ENOXAPARIN INJ 80 MG/0.8 ML SYR SC ONE (14:00)
[2018-12-05 14:06] LABS: BASOPHILS % 0.4 % (0.0-1.0); EOSINOPHILS # (AUTO) 0.1 (0.0-0.4); EOSINOPHILS % 0.7 % (0.0-6.0); HEMOGLOBIN 15.3 g/dL (12.0-16.0); LYMPHOCYTES # (AUTO) 2.9 (1.0-3.2); LYMPHOCYTES % 38.3 % (18.0-39.1); MEAN CORPUSCULAR HEMOGLOBIN 29.8 pg (28-32); MEAN CORPUSCULAR VOLUME 87.7 fL (81-99); MONOCYTES # (AUTO) 0.4 (0.2-0.8); MONOCYTES % 5.9 % (4.4-11.3); NEUTROPHILS # (AUTO) 4.1 (2.1-6.9); NEUTROPHILS % 54.6 % (38.7-80.0); PLATELET COUNT 213 x10e3/uL (140-360); RED BLOOD COUNT 5.13 x10e6/uL (3.6-5.1); RED CELL DISTRIBUTION WIDTH 13.3 % (11.7-14.4)
[2018-12-05 14:18] LABS: INR 0.94; PROTHROMBIN TIME 13.1 seconds (11.9-14.5)
[2018-12-05] MEDS ORDERED: ENALAPRIL PO (14:20)
[2018-12-05 14:28] LABS: ALANINE AMINOTRANSFERASE 18 IU/L (0-55); ALBUMIN 4.1 g/dL (3.5-5.0); ALBUMIN/GLOBULIN RATIO 1.1 (0.8-2.0); ALKALINE PHOSPHATASE 115 IU/L (40-150); ANION GAP 13.2 mmol/L (8-16); BLOOD UREA NITROGEN 18 mg/dL (7-26); BUN/CREATININE RATIO 25 (6-25); CALCIUM 9.8 mg/dL (8.4-10.2); CARBON DIOXIDE 23 mmol/L (22-29); CHLORIDE 103 mmol/L (98-107); CREATINE KINASE 49 IU/L (29-168); CREATININE, SERUM 0.73 mg/dL (0.57-1.11); EST GLOMERULAR FILTRATION RATE > 60 ML/MIN (60-); GLUCOSE 82 mg/dL (74-118); LIPASE 38 U/L (8-78); MAGNESIUM 2.2 MG/DL (1.3-2.1); POTASSIUM 4.2 mmol/L (3.5-5.1); SODIUM 135 mmol/L (136-145)
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
--- OUTSIDE RECORDS SUMMARY | 2018-12-05 14:30 | XMS REPORT ---
Author Author Admin, [place] Organization [facility] Address [address] [place] [address] Phone ;[phone]=[phone] Allergies, Adverse Reactions, Alerts Allergy Name Reaction Description Start Date Severity Status Provider No Known Allergies Dawna Nur [employer] Conditions or Problems Problem Name Problem Code [...] Diandra Laird MD Nasal Congestion 478.19 Inactive Franco Morrell MD Other disease of nasal cavity [...] SOLUTION 1 to 2 drops as needed [id number] 400 32563373159 Active Franco Morrell MD Active TYLENOL EXTRA STRENGTH 500 MG ORAL TABLET 2 by mouth every 8 hours as needed ACETAMINOPHEN 24967796294 Active Franco Morrell MD Active ERGOCALCIFEROL 91914 UNIT ORAL CAPSULE Take 1 capsule weekly ERGOCALCIFEROL 21462993023 Active Franco Morrell MD Active ENALAPRIL MALEATE 20 MG ORAL TABLET 1 by mouth twice a day. ENALAPRIL MALEATE 93815884028 Active Franco Morrell MD Active CIPRO 500 MG ORAL TABLET 1 by mouth twice a day CIPRO 500 MG ORAL TABLET 724544 CIPROFLOXACIN HCL Inactive ERGOCALCIFEROL 45052 UNIT ORAL CAPSULE Take 1 capsule weekly ERGOCALCIFEROL 11817 UNIT ORAL CAPSULE 2085482 ERGOCALCIFEROL Inactive ERGOCALCIFEROL 81759 UNIT ORAL CAPSULE TAKE 1 CAPSULE WEEKLY ERGOCALCIFEROL 81435 UNIT ORAL CAPSULE 9603017 ERGOCALCIFEROL Inactive CYCLOBENZAPRINE HCL 10 MG ORAL TABLET 1 By Mouth three times a day as needed for pain CYCLOBENZAPRINE HCL 10 MG ORAL TABLET 812492 CYCLOBENZAPRINE HCL Inactive IBUPROFEN 600 MG ORAL TABLET 1 By Mouth Every 8 hours As Needed pain IBUPROFEN 600 MG ORAL TABLET 291949 IBUPROFEN Inactive CHERATUSSIN AC 100-10 MG/5ML ORAL SYRUP 2 teaspoons (10mL) by mouth every 4 hours as needed for cough CHERATUSSIN AC 100-10 MG/5ML ORAL SYRUP 374791 GUAIFENESIN-CODEINE Inactive FLONASE ALLERGY RELIEF 50 MCG/ACT NASAL SUSPENSION 2 sprays each nostril every day FLONASE ALLERGY RELIEF 50 MCG/ACT NASAL SUSPENSION 5734083 FLUTICASONE PROPIONATE Inactive BENICAR HCT 20-12.5 MG ORAL TABLET Take 1 tablet daily BENICAR HCT 20-12.5 MG ORAL TABLET 578617 OLMESARTAN MEDOXOMIL-HCTZ Inactive CLONAZEPAM 0.5 MG ORAL TABLET 1 By Mouth Twice a Day CLONAZEPAM 0.5 MG ORAL TABLET 515332 CLONAZEPAM Inactive IBUPROFEN 600 MG ORAL TABLET 1 By Mouth Every 8 hours As Needed pain IBUPROFEN 600 MG ORAL TABLET 063659 IBUPROFEN Inactive MEDROL 4 MG ORAL TABLET THERAPY PACK use as directed MEDROL 4 MG ORAL TABLET THERAPY PACK 280800 METHYLPREDNISOLONE Inactive CIPRO 500 MG ORAL TABLET 1 by mouth twice a day CIPROFLOXACIN HCL 22084938595 No Longer Active Franco Morrell MD Active ERGOCALCIFEROL 96703 UNIT ORAL CAPSULE Take 1 capsule weekly ERGOCALCIFEROL 39838652591 No Longer Active Diandra Laird MD Active ERGOCALCIFEROL 10182 UNIT ORAL CAPSULE TAKE 1 CAPSULE WEEKLY ERGOCALCIFEROL 06405218719 No Longer Active Diandra Laird MD Active CYCLOBENZAPRINE HCL 10 MG ORAL TABLET 1 By Mouth three times a day as needed for pain CYCLOBENZAPRINE HCL 38231764153 No Longer Active Diandra Laird MD Active IBUPROFEN 600 MG ORAL TABLET 1 By Mouth Every 8 hours As Needed pain IBUPROFEN 21691034123 No Longer Active Diandra Laird MD Active CHERATUSSIN AC 100-10 MG/5ML ORAL SYRUP 2 teaspoons (10mL) by mouth every 4 hours as needed for cough GUAIFENESIN-CODEINE 21667414544 No Longer Active Diandra Laird MD Active FLONASE ALLERGY RELIEF 50 MCG/ACT NASAL SUSPENSION 2 sprays each nostril every day FLUTICASONE PROPIONATE 52394474950 No Longer Active Diandra Laird MD Active BENICAR HCT 20-12.5 MG ORAL TABLET Take 1 tablet daily OLMESARTAN MEDOXOMIL-HCTZ 75890006510 No Longer Active Diandra Laird MD Active CLONAZEPAM 0.5 MG ORAL TABLET 1 By Mouth Twice a Day CLONAZEPAM 71593885346 No Longer Active Diandra Laird MD Active IBUPROFEN 600 MG ORAL TABLET 1 By Mouth Every 8 hours As Needed pain IBUPROFEN 64356747661 No Longer Active Diandra Laird MD Active MEDROL 4 MG ORAL TABLET THERAPY PACK use as directed METHYLPREDNISOLONE 89416192648 No Longer Active Diandra Laird MD Active [...] 0.76 mg/dL 0.57-1.00 cholesterol, serum 221 mg/dL 485-814 6476/05/28 bilirubin, serum, total 0.4 mg/dL 0.0-1.2 Lab [...] Facility 11:11:06 CDT Est Patient Detailed - [id number] Franco Morrell MD CPT-21473 [facility] 12:28:17 CASE SPECIALIST Est Patient Detailed - 57429 Franco Morrell MD CPT-45226 [facility] 10:46:26 CASE SPECIALIST Est Patient Detailed - 81496 Franco Morrell MD CPT-27803 [facility] 13:11:35 CASE SPECIALIST Est Patient Problem Focus - 09725 Franco Morrell MD CPT-85138 [facility] 09:23:59 CASE SPECIALIST Est Patient Detailed - 70972 Diandra Laird MD CPT-98152 [facility] 17:53:50 CDT Est Patient Exp Problem - 51336 Diandra Laird MD CPT-28392 [facility] 09:40:28 CDT Est Patient Exp Problem - 12534 Diandra Laird MD CPT-11071 [facility] 14:11:54 CDT Est Patient Detailed - 75612 Diandra Laird MD CPT-21626 [facility] 12:17:04 CDT New Patient Detailed - 28948 Diandra Laird MD CPT-60482 [facility] Procedures Code Procedure Name Date Entry Date Standard Description CPT-38356 Est Patient Well Exam (40 - 64 Yrs) - 57556 09:08:27 CDT CPT-02147 Handling of specimen for transfer 09:08:27 CDT CPT-26664 Venipuncture 09:08:25 CDT CPT-27209 Urinalysis - Dip only - In House 12:21:04 CASE SPECIALIST CPT-24446 EKG - 12 Leads Tracing only w/o Interpretation and report 10:43:48 CASE SPECIALIST CPT-06702 Est Patient Well Exam (40 - 64 Yrs) - 70015 17:13:50 CDT
--- NOTE | 2018-12-05 14:34 | Diagnostic Imaging Report ---
EXAM: CHEST SINGLE (PORTABLE) DATE: 12/05/2018 1:38 PM INDICATION: Chest pain COMPARISON: None FINDINGS: The trachea is midline. The lungs are symmetrically expanded without evidence for large focal consolidation, pneumothorax, or significant pleural effusion. The cardiomediastinal silhouette and pulmonary vasculature are within normal limits. No acute osseous abnormality is identified. The surrounding soft tissues are unremarkable. IMPRESSION: No acute cardiopulmonary process identified. Signed by: Dr. Julien Mckee MD on 12/05/2018 2:30 PM
[2018-12-05 14:47] LABS: THYROID STIMULATING HORMONE 1.986 uIU/mL (0.350-4.940)
[2018-12-05 15:00] LABS: CLARITY,URINE CLEAR (CLEAR); COLOR,URINE YELLOW (YELLOW); KETONES,URINE NEGATIVE (NEGATIVE)
[2018-12-05 15:02] LABS: LEUKOCYTE ESTERASE ,URINE NEGATIVE (NEGATIVE); NITRITE,URINE NEGATIVE (NEGATIVE); PROTEIN,URINE DIPSTICK 1+ (NEGATIVE)
[2018-12-05 15:05] LABS: BILIRUBIN,URINE NEGATIVE (NEGATIVE); URINE UROBILINOGEN 0.2 mg/dL (0.2 - 1)
[2018-12-05 15:34] LABS: BACTERIA,URINE MODERATE /HPF; EPITHELIAL CELLS,URINE MODERATE /LPF
--- NOTE | 2018-12-05 15:40 | NUR ---
PT MOVED TO ROOM 2, RECEIVED REPORT FROM JHONNY EDGE; ASSUMED CARE AT THIS TIME, PT UPDATED ON PLAN OF CARE, NO NEEDS VOICED AT THIS TIME; BREATHING EVEN/UNLABORED, NON-DIAPHORETIC, NAD NOTED, CALL LIGHT IN REACH.
[2018-12-05] MEDS: ENALAPRIL MALEATE 10 MG TAB PO SCH (17:15)
--- NOTE | 2018-12-05 18:00 | NUR ---
received pt from ER to room 115, pt with 20 gauge IV to right AC, laying in bed, in no apparent distress, family member at bedside. pt in stable condition, will continue to assess.
[2018-12-05 18:34] VITALS: BP 144/77
--- NOTE | 2018-12-05 19:03 | NUR ---
shift change report given to oncoming RN, pt resting comfortably in bed, in no apparent distress, family at bedside, call light within reach.
[2018-12-05 20:00] VITALS: BP 119/79
[2018-12-05] MEDS ORDERED: ACETAMINOPHEN 325 MG TAB PO PRN (20:30)
[2018-12-05] MEDS: SIMVASTATIN 20 MG TAB PO SCH (20:38)
[2018-12-05] MEDS: FAMOTIDINE 20 MG/2 ML VIAL IV SCH (20:38)
[2018-12-05] MEDS: HYDROCODONE/APAP 5MG-325MG TAB PO PRN (21:05)
--- NOTE | 2018-12-05 22:21 | History and Physical ---
CHIEF COMPLAINT: Chest pain. HISTORY OF PRESENT ILLNESS: This is a 48-year-old female, who came into the emergency room department with complaints of chest pain that began about 10 days ago by increased intensity over the last several days. The patient reports that her chest pain is more chest pressure and feels like something is on her chest. She has never experienced anything like this before. Denies any nausea or vomiting. Denies any recent sickness, cough, congestion. Denies any shortness of breath. The patient was evaluated in the emergency room. Currently, she is doing well with no other complaints. There were no reports of any chest pain during my evaluation. REVIEW OF SYSTEMS: Pertinent positive: Chest pain. Pertinent negatives: Denies any palpitation, nausea, vomiting, diarrhea, dysuria, hematuria, frequency, urgency, lightheadedness, dizziness, abdominal pain, headaches, shortness of breath, cough, congestion, fever, or any other complaints. The rest of 14-point review of systems have been reviewed with the patient and are negative. ALLERGIES: NO KNOWN DRUG ALLERGIES. MEDICATIONS: Home medications are enalapril 20 mg twice a day. PAST MEDICAL HISTORY: Hypertension. PAST SURGICAL HISTORY: Reports none. FAMILY HISTORY: Hypertension and diabetes. SOCIAL HISTORY: No drugs. No alcohol. Does not smoke. Good social support. PHYSICAL EXAMINATION: VITAL SIGNS: Temperature is 96.7, pulse 50, respiratory rate 18, blood pressure 126/94, pulse ox 98% on room air. GENERAL: In no acute distress. Alert and oriented x3. Cooperative on examination. HEENT: Head is normocephalic and atraumatic. Eyes; pupils are equal, round, and reactive to light bilaterally. Extraocular movements are intact bilaterally. Throat; no evidence of erythema or exudates in the posterior pharynx. Has poor dentition. NECK: Supple. Good range of motion throughout. PULMONARY: Clear to auscultation bilaterally. No wheezing, rales, or rhonchi. No crackles appreciated. CARDIOVASCULAR: Tender to palpation on the chest wall. Positive S1, S2. No murmurs, rubs, or gallops appreciated. ABDOMEN: Soft, nondistended, and nontender to palpation. Bowel sounds present. MUSCULOSKELETAL: Strength 5/5 throughout. No evidence of any muscle deficits on examination. No weakness appreciated. NEUROLOGIC: Cranial nerves II through XII grossly intact. No evidence of any neurological deficits on exam. SKIN: Intact. Warm to touch. Good cap refill. PSYCHIATRIC: Normal affect and mood. EXTREMITIES: No edema. Good range of motion throughout. LAB FINDINGS: Show white count 7.4, hemoglobin 15, hematocrit 45, platelets of 213. Coagulation; PT 13, INR 0.94, PTT 32. D-dimer was 0.25, which was negative. Urinalysis was negative. MICROBIOLOGY: Urine culture pending. IMAGING STUDIES: Chest x-ray, no acute cardiopulmonary process. IMPRESSION: 1. Chest pain, rule out acute coronary syndrome. 2. Hypertension. 3. Morbidly obese. PLAN: At this time, trend troponins. Cardioprotective medications with aspirin and statin. Cardiology has been consulted. A 2D echo ordered. Resume same antihypertensive medications. P.r.n. hydralazine. Get labs, LDL, A1c, TSH along with morning labs. Otherwise, we will await for Cardiology recommendations for further management and care. Her D-dimer is negative, so at this time, we will just continue to monitor closely based on the patient's symptoms plus the patient is not tachypneic on exam. She is actually doing well. No reports of any pleuritic chest pain or any pleurisy upon taking a deep breath. Otherwise, continue with same plan of care and monitor closely. MD CATALINA Lemus/MODL /[id number]
[2018-12-05 22:35] LABS: CREATINE KINASE 43 IU/L (29-168)
[2018-12-06] VITALS (10 sets, daily range): BP systolic 98–144; BP diastolic 55–77
[2018-12-06] MEDS: ENOXAPARIN INJ 80 MG/0.8 ML SYR SC SCH ×2 (01:59→16:21)
[2018-12-06 06:12] LABS: ALANINE AMINOTRANSFERASE 15 IU/L (0-55); ALBUMIN 3.4 g/dL (3.5-5.0); ALKALINE PHOSPHATASE 97 IU/L (40-150); ANION GAP 13.5 mmol/L (8-16); BLOOD UREA NITROGEN 17 mg/dL (7-26); BUN/CREATININE RATIO 22 (6-25); CALCIUM 9.1 mg/dL (8.4-10.2); CARBON DIOXIDE 24 mmol/L (22-29); CHLORIDE 105 mmol/L (98-107); CHOL/HDL RATIO 4.3 (3.0-3.6); CHOLESTEROL 210 MD/DL (0-199); CREATININE, SERUM 0.78 mg/dL (0.57-1.11); EST GLOMERULAR FILTRATION RATE > 60 ML/MIN (60-); GLUCOSE 106 mg/dL (74-118); HDL CHOLESTEROL 49 MG/DL (40-60); LDL CHOLESTEROL 134 MG/DL (60-130); MAGNESIUM 2.1 MG/DL (1.3-2.1); PHOSPHORUS 3.5 MG/DL (2.3-4.7); POTASSIUM 4.5 mmol/L (3.5-5.1); SODIUM 138 mmol/L (136-145); TRIGLYCERIDES 134 MG/DL (0-149)
[2018-12-06 06:37] LABS: CREATINE KINASE 40 IU/L (29-168)
--- NOTE | 2018-12-06 07:01 | NUR ---
shift change report received from shift boss RN, pt laying in bed, no distress noted, awake, alert, oriented, respirations even and nonlabored, call light within reach, will continue to assess
[2018-12-06] MEDS: ENALAPRIL MALEATE 10 MG TAB PO SCH ×2 (08:02→16:21)
[2018-12-06] MEDS: HYDROCODONE/APAP 5MG-325MG TAB PO PRN (08:23)
[2018-12-06] MEDS: ASPIRIN 81 MG ENTERIC COATED PO SCH (08:23)
[2018-12-06] MEDS: FAMOTIDINE 20 MG/2 ML VIAL IV SCH ×2 (08:23→20:55)
[2018-12-06 09:58] LABS: BASOPHILS % 0.4 % (0.0-1.0); EOSINOPHILS # (AUTO) 0.1 (0.0-0.4); EOSINOPHILS % 1.5 % (0.0-6.0); HEMATOCRIT 39.8 % (34.2-44.1); LYMPHOCYTES # (AUTO) 3.1 (1.0-3.2); LYMPHOCYTES % 46.9 % (18.0-39.1); MEAN CORPUSCULAR HEMOGLOBIN 29.6 pg (28-32); MEAN CORPUSCULAR HGB CONC 32.7 g/dL (31-35); MEAN CORPUSCULAR VOLUME 90.7 fL (81-99); MONOCYTES # (AUTO) 0.5 (0.2-0.8); MONOCYTES % 7.8 % (4.4-11.3); NEUTROPHILS # (AUTO) 2.9 (2.1-6.9); NEUTROPHILS % 43.3 % (38.7-80.0); PLATELET COUNT 181 x10e3/uL (140-360); RED BLOOD COUNT 4.39 x10e6/uL (3.6-5.1); RED CELL DISTRIBUTION WIDTH 13.5 % (11.7-14.4)
[2018-12-06] MEDS ORDERED: NITROGLYCERIN 0.4 MG SUBL SL PRN (14:45)
--- NOTE | 2018-12-06 17:47 | Progress Note ---
DATE: 12/06/2018 Medicine Progress Note. SUBJECTIVE: The patient is doing well today. She does have occasional chest pressure. Awaiting for Cardiology's recommendations. PHYSICAL EXAMINATION: VITAL SIGNS: Afebrile. Normotensive. Respiratory rate is good. GENERAL: In no acute distress. Alert and oriented x3. Cooperative on examination. HEENT: Head is normocephalic and atraumatic. Eyes; pupils are equal, round, and reactive to light bilaterally. Extraocular movements are intact bilaterally. Neck: Supple. Good range of motion throughout. Throat; no evidence of erythema or exudates in the posterior pharynx. Has poor dentition. PULMONARY: Clear to auscultation bilaterally. No wheezing, rales, or rhonchi. No crackles appreciated. CARDIOVASCULAR: Positive S1, S2. No murmurs, rubs, or gallops appreciated. ABDOMEN: Soft, nondistended, and nontender to palpation. Bowel sounds present. MUSCULOSKELETAL: Strength 5/5 throughout. No evidence of any muscle deficits on examination. No weakness appreciated. NEUROLOGIC: Cranial nerves II through XII grossly intact. No evidence of any neurological deficits on exam. SKIN: Intact. Warm to touch. Good cap refill. PSYCHIATRIC: Normal affect and mood. EXTREMITIES: No edema. Good range of motion throughout. LABORATORY DATA: Labs reviewed. CBC stable. Chemistry reviewed and stable. All cardiac enzymes were found to be negative. LDL was elevated at 134. Urinalysis negative. MICROBIOLOGY: Negative. IMAGING STUDIES: None. IMPRESSION: 1. Chest pain, rule out acute coronary syndrome. 2. Hypertension. 3. Morbid obesity. 4. Hyperlipidemia. PLAN: At this time, cardiac enzymes are negative. Cardioprotective medications. A 2D echo pending. Awaiting Cardiology recommendations. Get a.m. labs. If cleared by Cardiology, likely tomorrow, we will discharge home. MD CATALINA Lemus/LARRY /[id number]
--- NOTE | 2018-12-06 18:55 | NUR ---
PATIENT IN BED. FAMILY AT BEDSIDE. CALL LIGHT WITHIN REACH. PATIENT IN NO PAIN OR DISTRESS.
--- NOTE | 2018-12-06 19:03 | NUR ---
shift change report given to oncoming night stocker RN, pt laying in bed in semi-fowlers position, respirations even and nonlabored, in no distress, family member at bedside, call light within reach.
[2018-12-06] MEDS: SIMVASTATIN 20 MG TAB PO SCH (20:56)
--- NOTE | 2018-12-06 23:49 | Consultation ---
DATE OF CONSULTATION: Cardiology Consultation HISTORY OF PRESENT ILLNESS: This is a 48-year-old woman with a history of hypertension, who presented to the emergency department with chest pain and low heart rates. The pain began a few days ago, progressively worsened, described as a chest pressure, centrally located. No radiation, some shortness of breath associated with it. Denies any exertional chest discomfort. She also reports low heart rates, but no syncopal events, lightheadedness or dizziness. REVIEW OF SYSTEMS: A 12-point review of system was conducted, is negative except as stated above in the HPI. PAST MEDICAL HISTORY: Hypertension and obesity. PAST FAMILY HISTORY: Noncontributory. PAST SURGICAL HISTORY: None recent. SOCIAL HISTORY: No illicit drug, alcohol, or tobacco use. ALLERGIES: NO KNOWN DRUG ALLERGIES. MEDICATIONS: See medication reconciliation form. PHYSICAL EXAMINATION: VITAL SIGNS: Temperature is 98.6, heart rate is 48, respirations are 21, blood pressure is 109/71, and oxygen saturation is 100% on room air. GENERAL: Well appearing and well built, in no apparent distress. Alert and oriented x3. HEAD: Normocephalic and atraumatic. Eyes, the extraocular muscles are intact. Conjunctivae clear. NECK: No JVD. No bruits. CARDIOVASCULAR: She is bradycardic. Regular rhythm. No murmurs. LUNGS: Clear to auscultation. ABDOMEN: Soft, nontender, and nondistended. EXTREMITIES: No clubbing, cyanosis, or edema. VASCULAR: 2+ pulses. SKIN: Warm, dry, and intact. NEUROLOGIC: No focal deficits noted. Cranial nerves grossly intact. PSYCHIATRIC: Normal mood and affect. LABORATORY DATA: Reviewed. Negative troponins x3. LDL 159. Telemetry monitoring revealed sinus bradycardia. 2D echocardiogram showed preserved left ventricular systolic function. IMPRESSION: 1. Precordial pain. 2. Hypertension. 3. Bradycardia. 4. Obesity. RECOMMENDATIONS: The patient ruled out for acute myocardial infarction with 3 sets under cardiac enzymes. Her ejection fraction is within normal limits. Continue to monitor closely on telemetry. No AV troy blockers. We will set her up for a stress test tomorrow. Fabián Puckett DO BM/MODL /[id number]
[2018-12-07] VITALS: BP 122/77
[2018-12-07] MEDS: ENOXAPARIN INJ 80 MG/0.8 ML SYR SC SCH ×3 (01:34→14:00)
[2018-12-07] MEDS: HYDROCODONE/APAP 5MG-325MG TAB PO PRN (02:28)
[2018-12-07 04:00] VITALS: BP 119/72
--- NOTE | 2018-12-07 07:39 | NUR ---
Gave report to oncoming nurse. Call light within reach. Patient in bed. Patient in no pain or distress
[2018-12-07 08:07] VITALS: BP 147/76
[2018-12-07] MEDS ORDERED: REGADENOSON 0.4 MG/5 ML SYR IV ONE (08:09)
[2018-12-07 08:42] VITALS: BP 147/76
[2018-12-07] MEDS: ASPIRIN 81 MG ENTERIC COATED PO SCH (08:55)
[2018-12-07] MEDS: FAMOTIDINE 20 MG/2 ML VIAL IV SCH (08:55)
[2018-12-07] MEDS: ENALAPRIL MALEATE 10 MG TAB PO SCH ×2 (09:00→17:38)
[2018-12-07] MEDS ORDERED: ONDANSETRON HCL 4 MG ORAL DISINTEGRATING TAB PO PRN (10:00)
--- NOTE | 2018-12-07 14:30 | NUR ---
ATTEMPTED TO DO DPA [PT NOT IN ROOM} LEFT SELF PAY PACKET AT BEDSIDE FOR REVIEW
--- NOTE | 2018-12-07 14:57 | NUR ---
GAVE PACKET OF INFORMATION WITH [facility] [employer] FOR ASSISTANCE WITH LOW TO NO INCOME TO PATIENT. RESOURCES THAT PATIENT MAY BE ABLE TO FOLLOW UP UPON DISCHARGE. PT EDUCATED ON EACH RESOURCE AND UNDERSTANDING HOW TO FOLLOW UP TO SEE IF QUALIFIED FOR EACH RESOURCE.
[2018-12-07 15:03] VITALS: BP 149/92
[2018-12-07 16:45] VITALS: BP 133/69
--- NOTE | 2018-12-07 17:45 | NUR ---
Rounds by attending and discharged patient. Provided with prescriptions and contacts for f/u appointment with cardiology and PCP. IV line removed, cath tip in place, dressing applied. Provided with discharge summary
[2018-12-07] MEDS ORDERED: ASPIR 8181 MG PO (17:54)
[2018-12-07] MEDS ORDERED: LIPITOR20 MG PO (17:54)
--- NOTE | 2018-12-08 16:23 | Discharge Summary ---
FINAL DISCHARGE DIAGNOSES: 1. Chest pain, ruled out for acute coronary syndrome, likely atypical in nature. 2. Hypertension. 3. Hyperlipidemia. 4. Morbid obesity. CONSULTANTS: We had Cardiology. PHYSICAL EXAMINATION: VITAL SIGNS: Temperature 97, pulse 65, respiratory rate is 20, blood pressure is 133/69, pulse ox 99% on room air. LABORATORY FINDINGS: Show white count is 6.6, hemoglobin 13, hematocrit 39.8, platelets of 181. Coagulation; PT 13, INR 0.94, PTT 32. D-dimer is 0.25 normal. Chemistry, sodium 138, potassium 4.5, chloride 105, bicarb 24, anion gap of 13. BUN 17, creatinine 0.78, glucose 106. A1c is 5.6, calcium 9.1, phosphorus 3.5, magnesium 2.1, total bilirubin is 0.6. LFTs within normal range. Troponins are all negative. Albumin 3.4, LDL is 134. Lipase level was 38. TSH is 1.9. Urinalysis negative. MICROBIOLOGY: Urine cultures were negative, found to be contaminant. IMAGING STUDIES: Chest x-ray was negative. 2D echo shows EF of 50% to 55%. Cardiac stress test was found to be negative. HOSPITAL COURSE: A 48-year-old female, who came into the ED with complaints of substernal chest pain, ongoing for the last several days. The patient was admitted and Cardiology was consulted. Cardiac enzymes were found to be negative. Cardiac stress test was negative. A 2D echo shows an EF of 50% to 55%. The patient maintained on cardioprotective medications while here in the hospital stay. The patient was evaluated by Cardiology and cleared for discharge by Cardiology standpoint. All imaging studies were found to be negative for any cardiac event. On discharge, the patient was doing well. Denies any chest pain prior to being discharged to home. On the day of discharge, vital signs were stable, labs reviewed and stable. The patient seen and evaluated, examined thoroughly on the day of discharge. No other complaints. The patient verbalized understanding and agreed to plan of care to follow up accordingly as an outpatient with PCP in 1 week and jira developer in 2 weeks' time. MEDICATIONS: See med reconciliation form. DISPOSITION: To home. CONDITION: Stable. DIET: Heart healthy. In the event of any worsening symptoms, the patient was advised to come back to the ED for further evaluation. Discharge summary took greater than 35 minutes. Once again, the patient was cleared for discharge by Cardiology. MD CATALINA Lemus/LARRY /[id number]
--- NOTE | 2018-12-19 10:09 | Myoview Stress Test ---
DATE OF STUDY: 12/06/2018 17:17:00 Stress Test - Treadmill ONLY PROCEDURE TITLE: Rest/stress single isotope SPECT imaging with pharmacologic stress and gated SPECT imaging. INDICATION: Chest pain. PROCEDURE IN DETAIL: Pharmacologic stress testing was performed with regadenoson per protocol. The heart rate was 46 beats per minute at rest and increased to 84 beats per minute during the regadenoson infusion. The resting blood pressure was 106/64 mmHg and increased to 133/83 mmHg, which is a normal response. The resting electrocardiogram demonstrated sinus bradycardia. There were no ST-segment changes suggestive of myocardial ischemia. Next, myocardial perfusion imaging was performed at rest following the injection of 11 mCi of tetrofosmin. At peak pharmacologic effect, the patient was injected with 49.7 mCi of tetrofosmin. Gated post-stress tomographic imaging was performed. FINDINGS: The overall quality of the study is fair. Left ventricular cavity is noted to be normal size on the rest and stress studies. Next, SPECT images demonstrate homogeneous tracer distribution throughout the myocardium. Gated SPECT imaging reveals normal myocardial thickening and wall motion. The left ventricular ejection fraction was calculated to be 68%. IMPRESSION: Myocardial perfusion imaging is normal. Overall, left ventricular systolic function was normal without regional wall motion abnormalities. Angle Mccormick MD ABS/MODL /[id number]
== END 2018-12-07 18:07 | disposition home or self-care (01) ==
LOC: ER 13:03 → ERHOLD 13:45 → MED/SURG 18:00
PROVIDERS: ADMIT Internal Medicine; ATTEND Internal Medicine
DX: R07.89 Other chest pain (principal); I10 Essential (primary) hypertension; E66.01 Morbid (severe) obesity due to excess calories; Z68.33 Body mass index [BMI] 33.0-33.9, adult; R00.1 Bradycardia, unspecified
CPT/HCPCS: 36415 ×2; 71045; 78452; 80053 ×2; 80061 ×2; 81001; 82550 ×2; 82553 ×2; 83036; 83690; 83735 ×2; 83880; 84100; 84443; 84484 ×2; 85025 ×2; 85379; 85610; 85730; 87086; 93005; 93017; 93306; 99284; A9502; G0378 ×3; J1650 ×3; J2270; J2405; J2785; J7030